=== PATIENT | female | born 1985 | race Caucasian/White ===

== ENCOUNTER 2017-08-12 04:26 | Emergency (ER) | payer OTHER ==
--- NOTE | 2017-08-12 05:01 | EDM.PDOC ---
ED HPI GENERAL MEDICAL PROBLEM - General Chief Complaint: Fever Stated Complaint: FEVER OVER 103.0 COUGH SINIUS PAIN Time Seen by Provider: 08/12/17 04:47 Source of Information: Reports: Patient History Limitations: Reports: No Limitations - History of Present Illness INITIAL COMMENTS - FREE TEXT/NARRATIVE: The patient states that she developed a fever this past 08/09/2017. Initially it was low-grade, but has been increasing since. She reports having a slight dry cough and pressure behind her eyes. No recent nausea, vomiting, constipation, or diarrhea. No recent urinary symptoms. No recent dyspnea, chest pain, or palpitations. The patient states that she has been taking Tylenol, with her most recent dose around 03:00 this morning. The patient's younger daughter has had a low-grade fever, cough, congestion, and sneezing. Neither the patient nor her daughter has been medically evaluated for their illnesses. The patient did not receive an influenza vaccine this season. The patient's PCP is Jeanine Aranda. sinus Pain Score (Numeric/FACES): 3 - Related Data Allergies Allergy/AdvReac Type Severity Reaction Status Date / Time seasonal Allergy Sneezing Uncoded 08/12/17 04:45 Past Medical History - Past Health History Medical/Surgical History: Denies Medical/Surgical History Social & Family History - Family History Family Medical History: Noncontributory - Tobacco Use Smoking Status *Q: Never Smoker - Caffeine Use Caffeine Use: Reports: None - Alcohol Use Alcohol Use History: Yes Alcohol Use Frequency: Socially - Recreational Drug Use Recreational Drug Use: No - Living Situation & Occupation Living situation: Reports: , with Spouse, with Family (3 kids) Occupation: Employed (Paraprofessional) ED ROS GENERAL - Review of Systems Review Of Systems: ROS reveals no pertinent complaints other than HPI. ED EXAM, GENERAL - Physical Exam Exam: See Below Exam Limited By: No Limitations General Appearance: Alert, WD/WN, No Apparent Distress Eye Exam: Bilateral Eye: Normal Inspection Ears: Normal External Exam, Normal Canal, Hearing Grossly Normal, Normal TMs, Other (Cerumen is present bilaterally, but tympanic membranes are visible and appear to be normal) Nose: Normal Inspection, Normal Mucosa, No Blood Throat/Mouth: Normal Inspection, Normal Lips, Normal Teeth, Normal Gums, Normal Oropharynx, Normal Voice, No Airway Compromise Head: Atraumatic, Normocephalic. No: Facial Tenderness, Sinus Tenderness Neck: Normal Inspection, Supple, Non-Tender, Full Range of Motion. No: Lymphadenopathy (L), Lymphadenopathy (R) Respiratory/Chest: No Respiratory Distress, Lungs Clear, Normal Breath Sounds, No Accessory Muscle Use, Chest Non-Tender Cardiovascular: Normal Peripheral Pulses, Regular Rate, Rhythm, No Edema, No Gallop, No JVD, No Murmur, No Rub Peripheral Pulses: 4+: Radial (L), Radial (R) GI/Abdominal: Normal Bowel Sounds, Soft, Non-Tender, No Organomegaly, No Distention, No Abnormal Bruit, No Mass (Female) Exam: Deferred Rectal (Female) Exam: Deferred Back Exam: Normal Inspection, Full Range of Motion, NT Extremities: Normal Inspection, Normal Range of Motion, No Pedal Edema, Normal Capillary Refill Neurological: Alert, Oriented, Normal Cognition, No Motor/Sensory Deficits Psychiatric: Normal Affect Skin Exam: Warm, Dry, Intact, Normal Color, No Rash Course - Vital Signs Last Recorded V/S: Last Vital Signs Temp 38.2 C H 08/12/17 04:32 Pulse 109 H 08/12/17 04:32 Resp 13 08/12/17 04:32 BP 135/82 08/12/17 04:32 Pulse Ox 100 08/12/17 04:32 - Re-Assessments/Exams Free Text/Narrative Re-Assessment/Exam: 08/12/17 04:57 The patient's illness looks and sounds viral. Flu swab has already been collected and sent. I offered further workup, including blood work and a chest x -ray, to exclude pneumonia, however, the patient declined. 08/12/17 05:30 Test results discussed with the patient. The patient's influenza swab has returned positive for Influenza B. Unfortunately, the patient has been symptomatic for about 72 hours, outside the window of treatment with Tamiflu. I informed her that she will be contagious at least as long as she is symptomatic. She states that there is no school today, and if she is still ill by 08/15/2017, she can follow-up with her PCP. Departure - Departure Time of Disposition: 05:31 Disposition: Home, Self-Care 01 Condition: Good Clinical Impression: Influenza B - Discharge Information Referrals: Melony Aranda [employer]IVER [Primary Care Provider] - Forms: ED Department Discharge Additional Instructions: You were seen in the emergency room for fever, slight cough, and pressure behind her eyes. Workup in the ER included an influenza swab, which returned positive for Influenza B. Unfortunately, you haven't been symptomatic for 72 hours, outside the window of treatment with Tamiflu. The fever that you are experiencing is your body fighting the virus. You want this to happen. We do not recommend that you take medicine to treat the fever, however, if you are very uncomfortable, you may take Tylenol or ibuprofen to treat the discomfort. Make sure tostay adequately hydrated. You will be contagious for at least as long as you are symptomatic. If you are still symptomatic by 08/15/2017, please follow-up with your PCP, Jeanine Aranda. If any other problems, please do not hesitate to return to the ER.
== END 2017-08-12 05:40 | disposition home or self-care (01) ==
LOC: JD.ED 04:26
DX: J10.1 Influenza due to other identified influenza virus with other respiratory manifestations (principal); Z91.09 Other allergy status, other than to drugs and biological substances
CPT/HCPCS: 87804; 99282; 99283